=== PATIENT | male | born 1955 | race African-American/Black ===

== ENCOUNTER 2017-11-10 09:22 | Inpatient (IN) | payer OTHER ==
[2017-11-10 12:14] VITALS: BMI 30.9
--- NOTE | 2017-11-10 13:19 | HP ---
COWS - Scale Resting Pulse: 0= [place] 80 or Below Sweatin= Chills/Flushing Restless Observation: 1= Difficult to Sit Still Pupil Size: 0= Normal to Room Light Bone or Joint Aches: 2= Severe Diffuse Aches Runny Nose/ Eye Tearin= Runny Nose/Eyes GI Upset > 30mins: 3= Vomiting/Diarrhea Tremor Observation: 2= Slight Tremor Visible Yawning Observation: 1= 1-2x During Session Anxiety or Irritability: 2=Irritable/Anxious Goose Flesh Skin: 0=Smooth Skin COWS Score: 14 Admission [facility] Chief Complaint: "I needed help" Allergies/Adverse Reactions: Allergies Allergy/AdvReac Type Severity Reaction Status Date / Time No Known Allergies Allergy Verified 11/10/17 12:07 History of Present Illness: 62 y/o male with a 2 year history of opiate addiction presents requesting detox. Pt states prior to that he used cocaine about 10 yrs ago which he stopped about 5 - 6 yrs ago. He smoked marijuana in between stopping with occasional alcohol but started opiates 2 yrs ago and has been using everyday since then, has never gone more than 4 hrs without using. 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 Has also PAD b/l legs, with debridement done x 2 yrs ago to R leg per pt. Pt appears dishevelled, has scabbed wounds to head, elbows and circulatory ulcers to legs. Denies any other medical nor psychaitrixc hx, denies any home meds, states he is homeless. Last time pt saw a doctor was 2 yrs ago. Denies past nor current SI/HI Exam Limitations: Physical Impairment - Ebola screening Have you traveled outside of the country in the last 21 days: No Have you had contact with anyone from an Ebola affected area: No Have you been sick,other than usual withdrawal symptoms: No Do you have a fever: No - Review of Systems Constitutional: Loss of Appetite, Changes in sleep EENT: reports: Nose Congestion, Dental Problems (has no teeth), Other (blind in both eyes) Respiratory: reports: Shortness of Breath (sometimes) Cardiac: reports: No Symptoms Reported GI: reports: Diarrhea, Abdominal cramping : reports: Burning, Dysuria Musculoskeletal: reports: Back Pain, Joint Pain, Joint Stiffness Integumentary: reports: Dryness Neuro: reports: Unsteady Gait, Other (ambulates with a walker,) Endocrine: reports: No Symptoms Reported Hematology: reports: No Symptoms Reported Psychiatric: reports: Agitated, Anxious Other Systems: Reviewed and Negative Patient History - Patient Medical History Hx Anemia: No Hx Asthma: No Hx Chronic Obstructive Pulmonary Disease (COPD): No Hx Cancer: No Hx Cardiac Disorders: No Hx Congestive Heart Failure: No Hx Hypertension: No Hx Hypercholesterolemia: No Hx Pacemaker: No HX Cerebrovascular Accident: No Hx Seizures: No Hx Dementia: No Hx Diabetes: No Hx Gastrointestinal Disorders: No Hx Liver Disease: No Hx Genitourinary Disorders: No Hx Sexually Transmitted Disorders: No Hx Renal Disease (ESRD): No Hx Thyroid Disease: No Hx Human Immunodeficiency Virus (HIV): No (Last tested 2 yrs ago, negative) Hx Hepatitis C: No Hx Depression: Yes (not on meds) Hx Suicide Attempt: No (denies current SI) Hx Bipolar Disorder: No Hx Schizophrenia: No - Patient Surgical History Past Surgical History: Yes Hx Neurologic Surgery: No Hx Cataract Extraction: No Hx Cardiac Surgery: No Hx Lung Surgery: No Hx Breast Surgery: No Hx Breast Biopsy: No Hx Abdominal Surgery: No Hx Appendectomy: No Hx Cholecystectomy: No Hx Genitourinary Surgery: No Hx Section: No Hx Orthopedic Surgery: No Other Surgical History: had surgical debridement to R leg 2 yrs ago, has dressing to the L knee Anesthesia Reaction: No - PPD History Previous Implant?: No Documented Results: Negative w/o proof Implanted On Prior R Admission?: No PPD to be Administered?: Yes - Reproductive History Patient is a Female of Child Bearing Age (11 -55 yrs old): No - Smoking Cessation Smoking history: Current every day smoker Have you smoked in the past 12 months: Yes Aproximately how many cigarettes per day: 5 Hx Chewing Tobacco Use: No Initiated information on smoking cessation: Yes 'Breaking Loose' booklet given: 11/10/17 - Substance & Tx. History Hx Alcohol Use: No Hx Substance Use: Yes Substance Use Type: Heroin, Opiates Hx Substance Use Treatment: No - Substances Abused Heroin Route: Inhalation Frequency: Daily Amount used: 4-5 BAGS Age of first use: 60 Date of Last Use: 11/09/17 Oxycontin Route: Oral Frequency: Daily Amount used: 30mg Age of first use: 61 Date of Last Use: 11/10/17 Family Disease History - Family Disease History Family Disease History: Other: Father (), Mother () Admission Physical Exam [facility] - Vital Signs Vital Signs: Vital Signs - 24 hr 11/10/17 12:12 Temperature 97.5 F L Pulse Rate 79 Respiratory 18 Rate Blood Pressure 154/92 - Physical General Appearance: Yes: Disheveled, Moderate Distress, Irritable, Anxious HEENTM: Yes: Other (pt is blind, has scabbed wounds to the head) Respiratory: Yes: Normal Breath Sounds, No Respiratory Distress Neck: Yes: Within Normal Limits, Trachea in good position Breast: Yes: Breast Exam Deferred Cardiology: Yes: Within Normal Limits, Regular Rate Abdominal: Yes: Non Tender Genitourinary: Yes: Within Normal Limits, Hesitency Back: Yes: Normal Inspection Musculoskeletal: Yes: Other (walks slowly with a cane) Extremities: Yes: Normal Capillary Refill, Other (multiple scantily bleeding circulatory ulcers to both legs, elbows) Neurological: Yes: Fully Oriented Integumentary: Yes: Normal Color Lymphatic: Yes: Within Normal Limits, Other (has impaired circulation to extremities) - Diagnostic (1) Opioid dependence with withdrawal Current Visit: Yes Status: Acute (2) Nicotine dependence Current Visit: Yes Status: Acute (3) Blindness of both eyes Current Visit: Yes Status: Acute (4) Ulcers of both lower extremities Current Visit: Yes Status: Acute (5) Healing ulcers of both lower extremities Current Visit: Yes Status: Acute Cleared for Admission [facility] - Detox or Rehab [facility] Level of Care: Medically Managed Detox Regimen/Protocol: Methadone [facility] Breath Alcohol Content Breath Alcohol Content: 0 Urine Drug Screen - Results Drug Screen Negative: No Urine Drug Screen Results: OPI-Opiates, OXY-Oxycodone, FEN-Fentanyl
[2017-11-10] MEDS ORDERED: MAGNESIUM CITRATE 300 ML BOTTLE PO PRN (14:26)
[2017-11-10] MEDS ORDERED: MENTHOL/PHENOL 1 EACH UD MM PRN (14:26)
[2017-11-10] MEDS ORDERED: guaiFENesin/D-METHORPHAN HB 10 ML UNIT-DOSE CUPS PO PRN (14:26)
[2017-11-10] MEDS ORDERED: MAGNESIUM HYDROX 2400MG/30ML ORAL SUSPENSION 30 ML CUP PO PRN (14:26)
[2017-11-10] MEDS ORDERED: LOPERAMIDE HCL 2 MG CAPSULE PO PRN (14:26)
[2017-11-10] MEDS ORDERED: NICOTINE POLACRILEX 2 MG GUM BUC PRN (14:26)
[2017-11-10] MEDS ORDERED: METHADONE HCL 10 MG TABLET (FOR DETOX USE ONLY) PO ONE ×2 (14:26→23:00)
[2017-11-10] MEDS ORDERED: MAG HYDROX/AL HYDROX/SIMETH 30 ML UNIT-DOSE CUP PO PRN (14:26)
[2017-11-10] MEDS ORDERED: P-EPHED 60MG/TRIPROLIDI 2.5MG TABLET PO PRN (14:26)
--- NOTE | 2017-11-10 14:39 | PN ---
[facility] Progress Note Note: keflex ordered for pt's multiple wounds ulcers
[2017-11-10] MEDS: NICOTINE 7 MG/24 HOURS TOPICAL PATCH TD SCH (14:50)
[2017-11-10 17:50] LABS: URINE APPEARANCE TURBID; URINE BILIRUBIN NEGATIVE (<2.0 mg/dL); URINE COLOR AMBER; URINE GLUCOSE (UA) NEGATIVE (NEGATIVE); URINE KETONE NEGATIVE (NEGATIVE); URINE NITRITE NEGATIVE (NEGATIVE)
[2017-11-10 17:52] LABS: URINE LEUK ESTERASE 2+ (NEGATIVE); URINE PROTEIN 1+ (NEGATIVE)
[2017-11-10 17:54] LABS: CALCIUM OXALATE CRYSTALS MODERATE /hpf (NONE SEEN); URINE MUCUS RARE
[2017-11-10] MEDS: IBUPROFEN 400 MG TABLET (FP) PO PRN (18:35)
[2017-11-10] MEDS: THIAMINE HCL 100 MG TABLET (FP) PO SCH (22:13)
[2017-11-10] MEDS: BACITRACIN 0.9 GM PACKET TP SCH (22:14)
[2017-11-10] MEDS: CEPHALEXIN MONOHYDRATE 250 MG CAPSULE (FP) PO SCH (22:16)
[2017-11-10] MEDS: MELATONIN 5 MG TABLETS PO PRN (22:19)
[2017-11-11] MEDS: CEPHALEXIN MONOHYDRATE 250 MG CAPSULE (FP) PO SCH ×5 (00:50→23:26)
[2017-11-11] MEDS: IBUPROFEN 400 MG TABLET (FP) PO PRN ×3 (02:08→19:21)
[2017-11-11] MEDS: diazePAM 5 MG TABLET PO PRN ×2 (02:08→19:20)
[2017-11-11] MEDS ORDERED: METHADONE HCL 10 MG TABLET (FOR DETOX USE ONLY) PO ONE (10:00)
[2017-11-11 10:12] LABS: HEMATOCRIT 36.1 % (35.4-49); HEMOGLOBIN 11.8 GM/dL (11.7-16.9); MCH 28.8 pg (25.7-33.7); MCHC 32.6 g/dl (32.0-35.9); MEAN CELL VOLUME 88.2 fl (80-96); MEAN PLT VOLUME 7.5 fl (7.5-11.1); PLATELET COUNT 404 K/MM3 (134-434); RDW 14.1 % (11.9-15.9); WHITE BLOOD COUNT 7.6 K/mm3 (4.0-10.0)
[2017-11-11 10:25] LABS: ALBUMIN 3.1 g/dl (3.4-5.0); ANION GAP 10 MMOL/L (8-16); BLOOD UREA NITROGEN 16 mg/dL (7-18); CHLORIDE 106 mmol/L (98-107); CO2 25 mmol/L (21-32); GLUCOSE,RANDOM 88 mg/dL (74-106); POTASSIUM 4.2 mmol/L (3.5-5.1); SODIUM 141 mmol/L (136-145)
[2017-11-11 10:30] LABS: ALK PHOS 79 U/L (45-117); BILIRUBIN,TOTAL 0.5 mg/dL (0.2-1.0); CREATININE 0.7 mg/dL (0.7-1.3); SGOT/AST 38 U/L (15-37); SGPT/ALT 22 U/L (12-78); TOT PROT 8.2 g/dl (6.4-8.2)
[2017-11-11] MEDS: PRENATAL VITAMINS W/ FOLIC ACID TABLET (FP) PO SCH (10:35)
[2017-11-11] MEDS: BACITRACIN 0.9 GM PACKET TP SCH ×2 (10:35→22:39)
[2017-11-11] MEDS: NICOTINE 7 MG/24 HOURS TOPICAL PATCH TD SCH (10:36)
--- NOTE | 2017-11-11 11:23 | EKG ---
Test Reason : Blood Pressure : / mmHG Vent. Rate : 072 BPM Atrial Rate : 072 BPM P-R Int : 162 ms QRS Dur : 078 ms QT Int : 392 ms P-R-T Axes : 082 000 064 degrees QTc Int : 429 ms NORMAL SINUS RHYTHM NORMAL ECG NO PREVIOUS ECGS AVAILABLE Confirmed by DORIAN JACOBSON MD ([id number]) on 11/11/2017 11:23:02 AM Referred By: Yaquelin Hancock Confirmed By:DORIAN JACOBSON MD
[2017-11-11] MEDS: LIDOCAINE 5% TOPICAL PATCH TP SCH (14:34)
--- NOTE | 2017-11-11 15:08 | PN ---
S COWS - Scale Resting Pulse: 0= [place] 80 or Below Sweatin= Chills/Flushing Restless Observation: 1= Difficult to Sit Still Pupil Size: 1= Pupils >than Normal Bone or Joint Aches: 2= Severe Diffuse Aches Runny Nose/ Eye Tearin= Nasal Congestion GI Upset > 30mins: 2= Nausea/Diarrhea Tremor Observation of Outstretched Hands: 2= Slight Tremor Visible Yawning Observation: 1= 1-2x During Session Anxiety or Irritability: 2=Irritable/Anxious Goose Flesh Skin: 0=Smooth Skin COWS Score: 13 [facility] Progress Note (SOAP) Subjective: body aches joints pain muscle cramping low energy left lower extremity chronic necrotic tissues and peeling off scars tissues Objective: 11/11/17 15:34 Vital Signs Temperature 98.4 F 11/11/17 13:25 Pulse Rate 81 11/11/17 13:25 Respiratory Rate 16 11/11/17 13:25 Blood Pressure 134/78 11/11/17 13:25 O2 Sat by Pulse Oximetry (%) Laboratory Last Values WBC 7.6 K/mm3 (4.0-10.0) 11/11/17 07:00 RBC 4.10 M/mm3 (4.00-5.60) 11/11/17 07:00 Hgb 11.8 GM/dL (11.7-16.9) 11/11/17 07:00 Hct 36.1 % (35.4-49) 11/11/17 07:00 MCV 88.2 fl (80-96) 11/11/17 07:00 MCH 28.8 pg (25.7-33.7) 11/11/17 07:00 MCHC 32.6 g/dl (32.0-35.9) 11/11/17 07:00 RDW 14.1 % (11.9-15.9) 11/11/17 07:00 Plt Count 404 K/MM3 (134-434) 11/11/17 07:00 MPV 7.5 fl (7.5-11.1) 11/11/17 07:00 Sodium 141 mmol/L (136-145) 11/11/17 07:00 Potassium 4.2 mmol/L (3.5-5.1) 11/11/17 07:00 Chloride 106 mmol/L (98-107) 11/11/17 07:00 Carbon Dioxide 25 mmol/L (21-32) 11/11/17 07:00 Anion Gap 10 MMOL/L (8-16) 11/11/17 07:00 BUN 16 mg/dL (7-18) 11/11/17 07:00 Creatinine 0.7 mg/dL (0.7-1.3) 11/11/17 07:00 Creat Clearance w eGFR > 60 (>60) 11/11/17 07:00 Random Glucose 88 mg/dL (74-106) 11/11/17 07:00 Calcium 9.0 mg/dL (8.5-10.1) 11/11/17 07:00 Total Bilirubin 0.5 mg/dL (0.2-1.0) 11/11/17 07:00 AST 38 U/L (15-37) H 11/11/17 07:00 ALT 22 U/L (12-78) 11/11/17 07:00 Alkaline Phosphatase 79 U/L (45-117) 11/11/17 07:00 Total Protein 8.2 g/dl (6.4-8.2) 11/11/17 07:00 Albumin 3.1 g/dl (3.4-5.0) L 11/11/17 07:00 Urine Color Nancy 11/10/17 15:10 Urine Appearance Turbid 11/10/17 15:10 Urine pH 5.0 (5.0-8.0) 11/10/17 15:10 Ur Specific [place] 1.026 (1.001-1.035) 11/10/17 15:10 Urine Protein 1+ (NEGATIVE) H 11/10/17 15:10 Urine Glucose (UA) Negative (NEGATIVE) 11/10/17 15:10 Urine Ketones Negative (NEGATIVE) 11/10/17 15:10 Urine Blood Negative (NEGATIVE) 11/10/17 15:10 Urine Nitrite Negative (NEGATIVE) 11/10/17 15:10 Urine Bilirubin Negative (<2.0 mg/dL) 11/10/17 15:10 Urine Urobilinogen 2.0 mg/dL (0.2-1.0) 11/10/17 15:10 Ur Leukocyte Esterase 2+ (NEGATIVE) H 11/10/17 15:10 Urine WBC (Auto) 66 /hpf (3-5) 11/10/17 15:10 Urine RBC (Auto) 2 /hpf (0-3) 11/10/17 15:10 Calcium Oxalate Crystal Moderate /hpf (NONE SEEN) 11/10/17 15:10 Urine Mucus Rare 11/10/17 15:10 RPR Titer Nonreactive (NONREACTIVE) 11/11/17 07:00 lab noted Assessment: 11/11/17 15:35 withdrawal sx 11/11/17 15:35 cellulitis Plan: continue detox keflex
--- NOTE | 2017-11-11 17:04 | CONSULT ---
[facility] Psychiatric Consult - Data Date of interview: 11/11/17 Admission source: [facility] Identifying data: First admission to [facility] for this 62 y/o AA male self- referred for detoxification treatment (opioid dependence).Admiited to [address] [place] [address].patient is singel without dependents,homeless,unemployed (disabled : blind ) and supported on [facility] benefits. Substance Abuse History: Confirmed by the patient in this interview.Details in current [facility] report : Smoking history: Current every day smoker. Have you smoked in the past 12 months: Yes. Aproximately how many cigarettes per day: 5. Hx Chewing Tobacco Use: No. Initiated information on smoking cessation: Yes. 'Breaking Loose' booklet given: 11/10/17. - Substance & Tx. History. Hx Alcohol Use: No. Hx Substance Use: Yes. Substance Use Type: Heroin, Opiates. Hx Substance Use Treatment: No. - Substances Abused. Heroin. Route: Inhalation. Frequency: Daily. Amount used: 4-5 BAGS. Age of first use: 60. Date of Last Use: 11/09/17. Oxycontin. Route: Oral. Frequency: Daily. Amount used: 30mg. Age of first use: 61. Date of Last Use: 11/10/17 Medical History: Edentulous.Patient is blind (detached retina in left eye + corneal degeneration in right eye).Walks with a cane. Psychiatric History: Patient denies. Physical/Sexual Abuse/Trauma History: Patient denies. Additional Comment: Urine Drug Screen Results: OPI-Opiates, OXY-Oxycodone, FEN- Fentanyl.Noted. Mental Status Exam - Mental Status Exam Alert and Oriented to: Time, Place, Person Cognitive Function: Grossly Intact Patient Appearance: Well Groomed Mood: Nervous, Withdrawn Affect: Mood Congruent Patient Behavior: Fatigued, Appropriate, Cooperative Speech Pattern: Clear, Appropriate Voice Loudness: Normal Thought Process: Goal Oriented Thought Disorder: Not Present Hallucinations: Denies Suicidal Ideation: Denies Homicidal Ideation: Denies Insight/Judgement: Poor Sleep: Well Appetite: Good Muscle strength/Tone: Normal Gait/Station: Other (not observed ; in bed during interview) Psychiatric Findings - Problem List ([place] 1, 2,3) (1) Opioid dependence with withdrawal Current Visit: Yes Status: Acute (2) Nicotine dependence Current Visit: Yes Status: Acute - Initial Treatment Plan Initial Treatment Plan: Psychoeducation.sleep hygiene.Detoxification.Observation.
[2017-11-11] MEDS ORDERED: CEPHALEXIN MONOHYDRATE 500 MG CAPSULE (UD) PO SCH (18:00)
[2017-11-11] MEDS: THIAMINE HCL 100 MG TABLET (FP) PO SCH (22:37)
[2017-11-11] MEDS: ACETAMINOPHEN 325 MG TABLET (FP) PO PRN (22:37)
[2017-11-11] MEDS: LIDOCAINE PATCH REMOVAL MC SCH (22:38)
[2017-11-11] MEDS: MELATONIN 5 MG TABLETS PO PRN (22:45)
[2017-11-12] MEDS: diazePAM 5 MG TABLET PO PRN ×4 (00:45→22:42)
[2017-11-12] MEDS: IBUPROFEN 400 MG TABLET (FP) PO PRN ×3 (01:19→22:49)
[2017-11-12] MEDS ORDERED: CYCLOBENZAPRINE HCL 5 MG TABLET PO ONE (01:46)
[2017-11-12] MEDS ORDERED: IBUPROFEN 400 MG TABLET (FP) PO ONE (01:46)
[2017-11-12] MEDS: CEPHALEXIN MONOHYDRATE 250 MG CAPSULE (FP) PO SCH ×4 (06:30→23:15)
[2017-11-12] MEDS ORDERED: METHADONE HCL 5 MG TABLET (FOR DETOX USE ONLY) PO ONE (10:00)
[2017-11-12] MEDS: PRENATAL VITAMINS W/ FOLIC ACID TABLET (FP) PO SCH (11:20)
[2017-11-12] MEDS: BACITRACIN 0.9 GM PACKET TP SCH ×2 (11:21→22:42)
[2017-11-12] MEDS: NICOTINE 7 MG/24 HOURS TOPICAL PATCH TD SCH (11:23)
[2017-11-12] MEDS: LIDOCAINE 5% TOPICAL PATCH TP SCH (11:23)
--- NOTE | 2017-11-12 16:14 | PN ---
[facility] COWS - Scale Resting Pulse: 0= [place] 80 or Below Sweatin= Chills/Flushing Restless Observation: 0= Sits Still Pupil Size: 1= Pupils >than Normal Bone or Joint Aches: 2= Severe Diffuse Aches Runny Nose/ Eye Tearin= Nasal Congestion GI Upset > 30mins: 1= Stomach Cramp Tremor Observation of Outstretched Hands: 1= Tremor [place], Not Seen Yawning Observation: 1= 1-2x During Session Anxiety or Irritability: 2=Irritable/Anxious Goose Flesh Skin: 0=Smooth Skin COWS Score: 10 [facility] Progress Note (SOAP) Subjective: body ache mild tremor reported sever back pain requests methadone twice a day wants to transfer to "someplace" treated back pain then return to bed her in [facility] teaching risks of opiate based medication Objective: 11/12/17 16:21 Vital Signs Temperature 97.3 F L 11/12/17 09:20 Pulse Rate 69 11/12/17 09:20 Respiratory Rate 18 11/12/17 09:20 Blood Pressure 153/73 11/12/17 09:20 O2 Sat by Pulse Oximetry (%) Laboratory Last Values WBC 7.6 K/mm3 (4.0-10.0) 11/11/17 07:00 RBC 4.10 M/mm3 (4.00-5.60) 11/11/17 07:00 Hgb 11.8 GM/dL (11.7-16.9) 11/11/17 07:00 Hct 36.1 % (35.4-49) 11/11/17 07:00 MCV 88.2 fl (80-96) 11/11/17 07:00 MCH 28.8 pg (25.7-33.7) 11/11/17 07:00 MCHC 32.6 g/dl (32.0-35.9) 11/11/17 07:00 RDW 14.1 % (11.9-15.9) 11/11/17 07:00 Plt Count 404 K/MM3 (134-434) 11/11/17 07:00 MPV 7.5 fl (7.5-11.1) 11/11/17 07:00 Sodium 141 mmol/L (136-145) 11/11/17 07:00 Potassium 4.2 mmol/L (3.5-5.1) 11/11/17 07:00 Chloride 106 mmol/L (98-107) 11/11/17 07:00 Carbon Dioxide 25 mmol/L (21-32) 11/11/17 07:00 Anion Gap 10 MMOL/L (8-16) 11/11/17 07:00 BUN 16 mg/dL (7-18) 11/11/17 07:00 Creatinine 0.7 mg/dL (0.7-1.3) 11/11/17 07:00 Creat Clearance w eGFR > 60 (>60) 11/11/17 07:00 Random Glucose 88 mg/dL (74-106) 11/11/17 07:00 Calcium 9.0 mg/dL (8.5-10.1) 11/11/17 07:00 Total Bilirubin 0.5 mg/dL (0.2-1.0) 11/11/17 07:00 AST 38 U/L (15-37) H 11/11/17 07:00 ALT 22 U/L (12-78) 11/11/17 07:00 Alkaline Phosphatase 79 U/L (45-117) 11/11/17 07:00 Total Protein 8.2 g/dl (6.4-8.2) 11/11/17 07:00 Albumin 3.1 g/dl (3.4-5.0) L 11/11/17 07:00 Urine Color Nancy 11/10/17 15:10 Urine Appearance Turbid 11/10/17 15:10 Urine pH 5.0 (5.0-8.0) 11/10/17 15:10 Ur Specific [place] 1.026 (1.001-1.035) 11/10/17 15:10 Urine Protein 1+ (NEGATIVE) H 11/10/17 15:10 Urine Glucose (UA) Negative (NEGATIVE) 11/10/17 15:10 Urine Ketones Negative (NEGATIVE) 11/10/17 15:10 Urine Blood Negative (NEGATIVE) 11/10/17 15:10 Urine Nitrite Negative (NEGATIVE) 11/10/17 15:10 Urine Bilirubin Negative (<2.0 mg/dL) 11/10/17 15:10 Urine Urobilinogen 2.0 mg/dL (0.2-1.0) 11/10/17 15:10 Ur Leukocyte Esterase 2+ (NEGATIVE) H 11/10/17 15:10 Urine WBC (Auto) 66 /hpf (3-5) 11/10/17 15:10 Urine RBC (Auto) 2 /hpf (0-3) 11/10/17 15:10 Calcium Oxalate Crystal Moderate /hpf (NONE SEEN) 11/10/17 15:10 Urine Mucus Rare 11/10/17 15:10 RPR Titer Nonreactive (NONREACTIVE) 11/11/17 07:00 lab noted Assessment: 11/12/17 16:22 withdrawal sx chronic back pain Plan: continue detox
[2017-11-12] MEDS: BACLOFEN 10 MG TABLET (FP) PO PRN (17:55)
[2017-11-12] MEDS: LIDOCAINE PATCH REMOVAL MC SCH (22:42)
[2017-11-12] MEDS: THIAMINE HCL 100 MG TABLET (FP) PO SCH (22:42)
[2017-11-12] MEDS: MELATONIN 5 MG TABLETS PO PRN (22:50)
[2017-11-13] MEDS: diazePAM 5 MG TABLET PO PRN ×3 (03:14→12:02)
[2017-11-13] MEDS: BACLOFEN 10 MG TABLET (FP) PO PRN ×3 (03:19→23:37)
[2017-11-13] MEDS: CEPHALEXIN MONOHYDRATE 250 MG CAPSULE (FP) PO SCH ×4 (06:33→23:37)
[2017-11-13] MEDS: IBUPROFEN 400 MG TABLET (FP) PO PRN ×2 (07:11→15:42)
[2017-11-13] MEDS ORDERED: METHADONE HCL 5 MG TABLET (FOR DETOX USE ONLY) PO ONE (10:00)
[2017-11-13] MEDS: PRENATAL VITAMINS W/ FOLIC ACID TABLET (FP) PO SCH (10:49)
[2017-11-13] MEDS: BACITRACIN 0.9 GM PACKET TP SCH ×2 (10:49→23:38)
[2017-11-13] MEDS: NICOTINE 7 MG/24 HOURS TOPICAL PATCH TD SCH (10:49)
[2017-11-13] MEDS: LIDOCAINE 5% TOPICAL PATCH TP SCH (10:50)
--- NOTE | 2017-11-13 11:27 | PN ---
[facility] Progress Note (SOAP) Subjective: interrupted sleep, sweats , lbp Objective: 11/13/17 11:24 Vital Signs Temperature 98.6 F 11/13/17 09:35 Pulse Rate 114 H 11/13/17 09:35 Respiratory Rate 18 11/13/17 09:35 Blood Pressure 117/75 11/13/17 09:35 O2 Sat by Pulse Oximetry (%) Laboratory Tests 11/10/17 11/11/17 11/11/17 15:10 07:00 07:00 WBC 7.6 RBC 4.10 Hgb 11.8 Hct 36.1 MCV 88.2 MCH 28.8 MCHC 32.6 RDW 14.1 Plt Count 404 MPV 7.5 Sodium 141 Potassium 4.2 Chloride 106 Carbon Dioxide 25 Anion Gap 10 BUN 16 Creatinine 0.7 Creat Clearance w eGFR > 60 Random Glucose 88 Calcium 9.0 Total Bilirubin 0.5 AST 38 H ALT 22 Alkaline Phosphatase 79 Total Protein 8.2 Albumin 3.1 L Urine Color Nancy Urine Appearance Turbid Urine pH 5.0 Ur Specific [place] 1.026 Urine Protein 1+ H Urine Glucose (UA) Negative Urine Ketones Negative Urine Blood Negative Urine Nitrite Negative Urine Bilirubin Negative Urine Urobilinogen 2.0 Ur Leukocyte Esterase 2+ H Urine WBC (Auto) 66 Urine RBC (Auto) 2 Calcium Oxalate Crystal Moderate Urine Mucus Rare RPR Titer 11/11/17 07:00 WBC RBC Hgb Hct MCV MCH MCHC RDW Plt Count MPV Sodium Potassium Chloride Carbon Dioxide Anion Gap BUN Creatinine Creat Clearance w eGFR Random Glucose Calcium Total Bilirubin AST ALT Alkaline Phosphatase Total Protein Albumin Urine Color Urine Appearance Urine pH Ur Specific [place] Urine Protein Urine Glucose (UA) Urine Ketones Urine Blood Urine Nitrite Urine Bilirubin Urine Urobilinogen Ur Leukocyte Esterase Urine WBC (Auto) Urine RBC (Auto) Calcium Oxalate Crystal Urine Mucus RPR Titer Nonreactive blind male pt aox3 sitting in bed in nad legs ulcers rt . left , cling on rt 11/13/17 11:25 Assessment: 11/13/17 11:26 withdrawal sx's blind leg ulcers Plan: continue detox increase fluids wheelchair daily wound care lidocaine patch daily
[2017-11-13] MEDS: ACETAMINOPHEN 325 MG TABLET (FP) PO PRN (18:11)
[2017-11-13] MEDS: hydrOXYzine PAMOATE 50 MG CAPSULE (FP) PO PRN (18:11)
[2017-11-13] MEDS: LIDOCAINE PATCH REMOVAL MC SCH (23:25)
[2017-11-13] MEDS: THIAMINE HCL 100 MG TABLET (FP) PO SCH (23:42)
[2017-11-14] MEDS: IBUPROFEN 400 MG TABLET (FP) PO PRN ×4 (00:11→22:48)
[2017-11-14] MEDS: hydrOXYzine PAMOATE 50 MG CAPSULE (FP) PO PRN ×5 (00:20→22:48)
[2017-11-14] MEDS: BACLOFEN 10 MG TABLET (FP) PO PRN ×3 (06:26→22:48)
[2017-11-14] MEDS: CEPHALEXIN MONOHYDRATE 250 MG CAPSULE (FP) PO SCH ×4 (06:26→23:09)
[2017-11-14] MEDS ORDERED: METHADONE HCL 10 MG TABLET (FOR DETOX USE ONLY) PO ONE (10:00)
--- NOTE | 2017-11-14 10:15 | PN ---
[facility] Progress Note (SOAP) Subjective: feeling better no sweat no tremor chronic back pain treated with motrin and muscle relaxant with good effect reported can not stop picking on the scabs on the legs encourage hand washing Objective: 11/14/17 10:14 Vital Signs Temperature 98.1 F 11/14/17 08:59 Pulse Rate 77 11/14/17 08:59 Respiratory Rate 18 11/14/17 08:59 Blood Pressure 123/76 11/14/17 08:59 O2 Sat by Pulse Oximetry (%) Laboratory Last Values WBC 7.6 K/mm3 (4.0-10.0) 11/11/17 07:00 RBC 4.10 M/mm3 (4.00-5.60) 11/11/17 07:00 Hgb 11.8 GM/dL (11.7-16.9) 11/11/17 07:00 Hct 36.1 % (35.4-49) 11/11/17 07:00 MCV 88.2 fl (80-96) 11/11/17 07:00 MCH 28.8 pg (25.7-33.7) 11/11/17 07:00 MCHC 32.6 g/dl (32.0-35.9) 11/11/17 07:00 RDW 14.1 % (11.9-15.9) 11/11/17 07:00 Plt Count 404 K/MM3 (134-434) 11/11/17 07:00 MPV 7.5 fl (7.5-11.1) 11/11/17 07:00 Sodium 141 mmol/L (136-145) 11/11/17 07:00 Potassium 4.2 mmol/L (3.5-5.1) 11/11/17 07:00 Chloride 106 mmol/L (98-107) 11/11/17 07:00 Carbon Dioxide 25 mmol/L (21-32) 11/11/17 07:00 Anion Gap 10 MMOL/L (8-16) 11/11/17 07:00 BUN 16 mg/dL (7-18) 11/11/17 07:00 Creatinine 0.7 mg/dL (0.7-1.3) 11/11/17 07:00 Creat Clearance w eGFR > 60 (>60) 11/11/17 07:00 Random Glucose 88 mg/dL (74-106) 11/11/17 07:00 Calcium 9.0 mg/dL (8.5-10.1) 11/11/17 07:00 Total Bilirubin 0.5 mg/dL (0.2-1.0) 11/11/17 07:00 AST 38 U/L (15-37) H 11/11/17 07:00 ALT 22 U/L (12-78) 11/11/17 07:00 Alkaline Phosphatase 79 U/L (45-117) 11/11/17 07:00 Total Protein 8.2 g/dl (6.4-8.2) 11/11/17 07:00 Albumin 3.1 g/dl (3.4-5.0) L 11/11/17 07:00 Urine Color Nancy 11/10/17 15:10 Urine Appearance Turbid 11/10/17 15:10 Urine pH 5.0 (5.0-8.0) 11/10/17 15:10 Ur Specific [place] 1.026 (1.001-1.035) 11/10/17 15:10 Urine Protein 1+ (NEGATIVE) H 11/10/17 15:10 Urine Glucose (UA) Negative (NEGATIVE) 11/10/17 15:10 Urine Ketones Negative (NEGATIVE) 11/10/17 15:10 Urine Blood Negative (NEGATIVE) 11/10/17 15:10 Urine Nitrite Negative (NEGATIVE) 11/10/17 15:10 Urine Bilirubin Negative (<2.0 mg/dL) 11/10/17 15:10 Urine Urobilinogen 2.0 mg/dL (0.2-1.0) 11/10/17 15:10 Ur Leukocyte Esterase 2+ (NEGATIVE) H 11/10/17 15:10 Urine WBC (Auto) 66 /hpf (3-5) 11/10/17 15:10 Urine RBC (Auto) 2 /hpf (0-3) 11/10/17 15:10 Calcium Oxalate Crystal Moderate /hpf (NONE SEEN) 11/10/17 15:10 Urine Mucus Rare 11/10/17 15:10 RPR Titer Nonreactive (NONREACTIVE) 11/11/17 07:00 lab noted Assessment: 11/14/17 10:15 mild withdrawal sx continue leg dressing change strong recommend avoid irritation to the legs Plan: medically supervised detox
[2017-11-14] MEDS: LIDOCAINE 5% TOPICAL PATCH TP SCH (10:58)
[2017-11-14] MEDS: BACITRACIN 0.9 GM PACKET TP SCH ×2 (10:58→22:57)
[2017-11-14] MEDS: PRENATAL VITAMINS W/ FOLIC ACID TABLET (FP) PO SCH (10:58)
[2017-11-14] MEDS: NICOTINE 7 MG/24 HOURS TOPICAL PATCH TD SCH (10:58)
[2017-11-14] MEDS: THIAMINE HCL 100 MG TABLET (FP) PO SCH (22:48)
[2017-11-14] MEDS: LIDOCAINE PATCH REMOVAL MC SCH (22:49)
[2017-11-14] MEDS: MELATONIN 5 MG TABLETS PO PRN (22:54)
[2017-11-15] MEDS ORDERED: METHADONE HCL 5 MG TABLET (FOR DETOX USE ONLY) PO ONE (06:00)
[2017-11-15] MEDS: CEPHALEXIN MONOHYDRATE 250 MG CAPSULE (FP) PO SCH ×3 (06:47→18:00)
[2017-11-15] MEDS: IBUPROFEN 400 MG TABLET (FP) PO PRN ×3 (06:48→22:18)
[2017-11-15] MEDS: BACLOFEN 10 MG TABLET (FP) PO PRN ×3 (06:52→22:18)
--- NOTE | 2017-11-15 08:54 | PN ---
[facility] Progress Note (SOAP) Subjective: Im better but need my medicine. Objective: 11/15/17 08:51 Vital Signs Temperature 96.9 F L 11/15/17 06:10 Pulse Rate 67 11/15/17 06:10 Respiratory Rate 18 11/15/17 06:10 Blood Pressure 132/74 11/15/17 06:10 O2 Sat by Pulse Oximetry (%) Laboratory Tests 11/10/17 11/11/17 11/11/17 15:10 07:00 07:00 WBC 7.6 RBC 4.10 Hgb 11.8 Hct 36.1 MCV 88.2 MCH 28.8 MCHC 32.6 RDW 14.1 Plt Count 404 MPV 7.5 Sodium 141 Potassium 4.2 Chloride 106 Carbon Dioxide 25 Anion Gap 10 BUN 16 Creatinine 0.7 Creat Clearance w eGFR > 60 Random Glucose 88 Calcium 9.0 Total Bilirubin 0.5 AST 38 H ALT 22 Alkaline Phosphatase 79 Total Protein 8.2 Albumin 3.1 L Urine Color Nancy Urine Appearance Turbid Urine pH 5.0 Ur Specific [place] 1.026 Urine Protein 1+ H Urine Glucose (UA) Negative Urine Ketones Negative Urine Blood Negative Urine Nitrite Negative Urine Bilirubin Negative Urine Urobilinogen 2.0 Ur Leukocyte Esterase 2+ H Urine WBC (Auto) 66 Urine RBC (Auto) 2 Calcium Oxalate Crystal Moderate Urine Mucus Rare RPR Titer 11/11/17 07:00 WBC RBC Hgb Hct MCV MCH MCHC RDW Plt Count MPV Sodium Potassium Chloride Carbon Dioxide Anion Gap BUN Creatinine Creat Clearance w eGFR Random Glucose Calcium Total Bilirubin AST ALT Alkaline Phosphatase Total Protein Albumin Urine Color Urine Appearance Urine pH Ur Specific Clear Urine Protein Urine Glucose (UA) Urine Ketones Urine Blood Urine Nitrite Urine Bilirubin Urine Urobilinogen Ur Leukocyte Esterase Urine WBC (Auto) Urine RBC (Auto) Calcium Oxalate Crystal Urine Mucus RPR Titer Nonreactive pt aox3 in nad , lying in bed Assessment: 11/15/17 08:52 detox completed leg ulcers blind Plan: d/c today rehab at [facility] daily wound care keflex 500mg q 6h
--- NOTE | 2017-11-15 08:55 | DS ---
[facility] Detox Discharge Summary Admission Date: 11/10/17 Discharge Date: 11/15/17 - History Present History: Opioid Dependence - Physical Exam Results Vital Signs: Vital Signs Temperature 96.9 F L 11/15/17 06:10 Pulse Rate 67 11/15/17 06:10 Respiratory Rate 11/15/17 06:10 Blood Pressure 132/74 11/15/17 06:10 O2 Sat by Pulse Oximetry (%) - Medication Discharge Medications: Ambulatory Orders Cephalexin Monohydrate [Keflex -] 250 mg PO Q6HPO #20 capsule 11/15/17 - Diagnosis (1) Blindness of both eyes Current Visit: Yes Status: Chronic (2) Nicotine dependence Current Visit: Yes Status: Chronic (3) Opioid dependence with withdrawal Current Visit: Yes Status: Chronic (4) Ulcers of both lower extremities Current Visit: Yes Status: Chronic
--- NOTE | 2017-11-15 08:59 | DS ---
[facility] Detox Discharge Summary Admission Date: 11/10/17 Discharge Date: 11/15/17 - History Present History: Opioid Dependence - Physical Exam Results Vital Signs: Vital Signs Temperature 96.9 F L 11/15/17 06:10 Pulse Rate 67 11/15/17 06:10 Respiratory Rate 11/15/17 06:10 Blood Pressure 132/74 11/15/17 06:10 O2 Sat by Pulse Oximetry (%) - Treatment Hospital Course: Detox Protocol Followed, Detoxed Safely, Responded well, Discharged Condition Good - Medication Discharge Medications: Ambulatory Orders Cephalexin Monohydrate [Keflex -] 250 mg PO Q6HPO #20 capsule 11/15/17 - Diagnosis (1) Blindness of both eyes Current Visit: Yes Status: Chronic (2) Nicotine dependence Current Visit: Yes Status: Chronic Qualifiers: Nicotine product type: cigarettes Substance use status: uncomplicated Qualified Code(s): F17.210 - Nicotine dependence, cigarettes, uncomplicated (3) Opioid dependence with withdrawal Current Visit: Yes Status: Chronic (4) Ulcers of both lower extremities Current Visit: Yes Status: Chronic - AMA Did Patient Leave Against Medical Advice: No
[2017-11-15] MEDS: PRENATAL VITAMINS W/ FOLIC ACID TABLET (FP) PO SCH (10:43)
[2017-11-15] MEDS: NICOTINE 7 MG/24 HOURS TOPICAL PATCH TD SCH (10:43)
[2017-11-15] MEDS: hydrOXYzine PAMOATE 50 MG CAPSULE (FP) PO PRN (10:43)
[2017-11-15] MEDS: LIDOCAINE 5% TOPICAL PATCH TP SCH (10:44)
[2017-11-15] MEDS: BACITRACIN 0.9 GM PACKET TP SCH ×2 (13:13→22:18)
[2017-11-15] MEDS: THIAMINE HCL 100 MG TABLET (FP) PO SCH (22:18)
[2017-11-15] MEDS: MELATONIN 5 MG TABLETS PO PRN (22:18)
[2017-11-15] MEDS: LIDOCAINE PATCH REMOVAL MC SCH (22:18)
[2017-11-16] MEDS: CEPHALEXIN MONOHYDRATE 250 MG CAPSULE (FP) PO SCH ×5 (00:08→23:36)
[2017-11-16] MEDS: BACLOFEN 10 MG TABLET (FP) PO PRN ×2 (06:58→19:16)
[2017-11-16] MEDS: IBUPROFEN 400 MG TABLET (FP) PO PRN ×3 (06:59→22:52)
[2017-11-16] MEDS: PRENATAL VITAMINS W/ FOLIC ACID TABLET (FP) PO SCH (11:22)
[2017-11-16] MEDS: NICOTINE 7 MG/24 HOURS TOPICAL PATCH TD SCH (11:22)
[2017-11-16] MEDS: BACITRACIN 0.9 GM PACKET TP SCH ×2 (11:22→22:53)
[2017-11-16] MEDS: LIDOCAINE 5% TOPICAL PATCH TP SCH (11:22)
[2017-11-16] MEDS: ACETAMINOPHEN 325 MG TABLET (FP) PO PRN (11:33)
[2017-11-16] MEDS: hydrOXYzine PAMOATE 50 MG CAPSULE (FP) PO PRN (11:34)
[2017-11-16] MEDS: MELATONIN 5 MG TABLETS PO PRN (22:52)
[2017-11-16] MEDS: THIAMINE HCL 100 MG TABLET (FP) PO SCH (22:52)
[2017-11-16] MEDS: LIDOCAINE PATCH REMOVAL MC SCH (22:53)
[2017-11-17] MEDS: IBUPROFEN 400 MG TABLET (FP) PO PRN ×3 (03:53→19:39)
[2017-11-17] MEDS: hydrOXYzine PAMOATE 50 MG CAPSULE (FP) PO PRN ×2 (03:53→10:57)
[2017-11-17] MEDS: CEPHALEXIN MONOHYDRATE 250 MG CAPSULE (FP) PO SCH ×2 (06:00→13:00)
[2017-11-17] MEDS: BACLOFEN 10 MG TABLET (FP) PO PRN ×2 (07:22→15:18)
[2017-11-17] MEDS: ACETAMINOPHEN 325 MG TABLET (FP) PO PRN (07:23)
[2017-11-17] MEDS: BACITRACIN 0.9 GM PACKET TP SCH ×2 (10:53→22:39)
[2017-11-17] MEDS: NICOTINE 7 MG/24 HOURS TOPICAL PATCH TD SCH (10:53)
[2017-11-17] MEDS: LIDOCAINE 5% TOPICAL PATCH TP SCH (10:56)
[2017-11-17] MEDS: PRENATAL VITAMINS W/ FOLIC ACID TABLET (FP) PO SCH (10:56)
[2017-11-17] MEDS: LIDOCAINE PATCH REMOVAL MC SCH (22:11)
[2017-11-17] MEDS: THIAMINE HCL 100 MG TABLET (FP) PO SCH (22:39)
[2017-11-18] MEDS: IBUPROFEN 400 MG TABLET (FP) PO PRN ×4 (01:49→22:30)
[2017-11-18] MEDS: hydrOXYzine PAMOATE 50 MG CAPSULE (FP) PO PRN ×4 (01:53→22:28)
[2017-11-18] MEDS: BACLOFEN 10 MG TABLET (FP) PO PRN ×3 (01:54→22:29)
[2017-11-18 06:57] VITALS: TEMP 97.9
[2017-11-18] MEDS: BACITRACIN 0.9 GM PACKET TP SCH ×2 (11:16→22:28)
[2017-11-18] MEDS: PRENATAL VITAMINS W/ FOLIC ACID TABLET (FP) PO SCH (11:17)
[2017-11-18] MEDS: NICOTINE 7 MG/24 HOURS TOPICAL PATCH TD SCH (11:17)
[2017-11-18] MEDS: LIDOCAINE 5% TOPICAL PATCH TP SCH (11:19)
[2017-11-18] MEDS: ACETAMINOPHEN 325 MG TABLET (FP) PO PRN (11:22)
--- NOTE | 2017-11-18 16:43 | HP ---
Psychiatrist Admission - Data Date of interview: 11/18/17 Admission source: [address] [place] [address] detox Identifying data: This is the first admission to [address] [place] [address] inpatient rehablitation for this 62 years old AA single male undomiciled,supported by [facility]. Medical History: Blindness of both eyes(retinal detachment). Psychiatric History: denies Physical/Sexual Abuse/Trauma History: denies Vital Signs: Vital Signs - 24 hr 11/18/17 11/18/17 03:30 06:57 Temperature 97.9 F Pulse Rate 78 Respiratory 18 18 Rate Blood Pressure 138/81 Allergies/Adverse Reactions: Allergies Allergy/AdvReac Type Severity Reaction Status Date / Time No Known Allergies Allergy Verified 11/10/17 12:07 Date of last physical exam: 11/10/17 Concur with the findings of this exam: Yes - Substance Abuse/Tx History Hx Alcohol Use: Yes (socially) Hx Substance Use: Yes (stopped cocaine 9 yo,heroin since 60 yo,5 bags daily, Oxycontin since 61 yo) Substance Use Type: Alcohol, Cocaine, Opiates Hx Substance Use Treatment: Yes (no significant abstinence time) Mental Status Exam - Mental Status Exam Alert and Oriented to: Time, Place, Person Cognitive Function: Grossly Intact Patient Appearance: Unkempt Mood: Euthymic Affect: Constricted Patient Behavior: Passive Speech Pattern: Clear Voice Loudness: Mildly Soft/Quiet Thought Process: Goal Oriented Thought Disorder: Not Present Hallucinations: Denies Suicidal Ideation: Denies Homicidal Ideation: Denies Insight/Judgement: Fair Sleep: Fair Appetite: Fair Muscle strength/Tone: Normal Gait/Station: Other (carlos alberto needs some assistance since he is legally blind) Psychiatric Findings - Problem List ([place] 1, 2,3) (1) Blindness of both eyes Current Visit: Yes Status: Chronic (2) Nicotine dependence Current Visit: Yes Status: Chronic Qualifiers: Nicotine product type: cigarettes Substance use status: uncomplicated Qualified Code(s): F17.210 - Nicotine dependence, cigarettes, uncomplicated (3) Opioid dependence Current Visit: Yes Status: Chronic - Initial Treatment Plan Initial Treatment Plan: Will monitor progress.
[2017-11-18] MEDS: THIAMINE HCL 100 MG TABLET (FP) PO SCH (22:26)
[2017-11-18] MEDS: MELATONIN 5 MG TABLETS PO PRN (22:28)
[2017-11-18] MEDS: LIDOCAINE PATCH REMOVAL MC SCH (22:28)
[2017-11-19] MEDS: IBUPROFEN 400 MG TABLET (FP) PO PRN ×3 (03:39→19:07)
[2017-11-19] MEDS: hydrOXYzine PAMOATE 50 MG CAPSULE (FP) PO PRN ×4 (03:39→23:44)
[2017-11-19] MEDS: BACLOFEN 10 MG TABLET (FP) PO PRN ×3 (03:40→19:07)
[2017-11-19] MEDS: NICOTINE 7 MG/24 HOURS TOPICAL PATCH TD SCH (11:21)
[2017-11-19] MEDS: PRENATAL VITAMINS W/ FOLIC ACID TABLET (FP) PO SCH (11:21)
[2017-11-19] MEDS: BACITRACIN 0.9 GM PACKET TP SCH ×2 (11:21→23:42)
[2017-11-19] MEDS: LIDOCAINE 5% TOPICAL PATCH TP SCH (11:21)
[2017-11-19] MEDS ORDERED: TIZANIDINE HCL 2 MG TABLET PO PRN (13:39)
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
[2017-11-19] MEDS: CEPHALEXIN MONOHYDRATE 500 MG CAPSULE (UD) PO SCH (23:42)
[2017-11-19] MEDS: MELATONIN 5 MG TABLETS PO PRN (23:42)
[2017-11-19] MEDS: LIDOCAINE PATCH REMOVAL MC SCH (23:42)
[2017-11-19] MEDS: ACETAMINOPHEN 325 MG TABLET (FP) PO PRN (23:43)
[2017-11-19] MEDS: THIAMINE HCL 100 MG TABLET (FP) PO SCH (23:44)
[2017-11-19] MEDS: ZINC OXIDE 20% TOPICAL OINTMENT 30 GM TUBE TP SCH (23:44)
[2017-11-20] MEDS: IBUPROFEN 400 MG TABLET (FP) PO PRN ×2 (05:17→11:36)
[2017-11-20] MEDS: BACLOFEN 10 MG TABLET (FP) PO PRN (05:17)
[2017-11-20] MEDS: hydrOXYzine PAMOATE 50 MG CAPSULE (FP) PO PRN ×2 (05:18→11:36)
[2017-11-20] MEDS: BACITRACIN 0.9 GM PACKET TP SCH ×4 (10:48→22:04)
[2017-11-20] MEDS: ZINC OXIDE 20% TOPICAL OINTMENT 30 GM TUBE TP SCH ×4 (10:48→22:04)
[2017-11-20] MEDS: NICOTINE 7 MG/24 HOURS TOPICAL PATCH TD SCH (11:35)
[2017-11-20] MEDS: LIDOCAINE 5% TOPICAL PATCH TP SCH (11:36)
[2017-11-20] MEDS: PRENATAL VITAMINS W/ FOLIC ACID TABLET (FP) PO SCH (11:36)
[2017-11-20] MEDS: CEPHALEXIN MONOHYDRATE 500 MG CAPSULE (UD) PO SCH ×3 (11:36→22:04)
[2017-11-20] MEDS: MELATONIN 5 MG TABLETS PO PRN (21:51)
[2017-11-20] MEDS: THIAMINE HCL 100 MG TABLET (FP) PO SCH ×2 (21:51→22:04)
[2017-11-20] MEDS: LIDOCAINE PATCH REMOVAL MC SCH (21:52)
[2017-11-21] MEDS: BACLOFEN 10 MG TABLET (FP) PO PRN ×3 (05:15→22:24)
[2017-11-21] MEDS: IBUPROFEN 400 MG TABLET (FP) PO PRN ×3 (05:15→22:24)
[2017-11-21] MEDS ORDERED: PT OWN MED DRAWER 7, Y5N ONE (09:36)
--- NOTE | 2017-11-21 10:32 | PN ---
Psychiatric Progress Note Vital Signs: Vital Signs Period Temp Pulse Resp BP Sys/Varela Pulse Ox Last 24 Hr 65 18-18 147/95 Date of Session: 11/21/17 Chief Complaint:: DischargeNote HPI: Patient addressing Opioid Dependence comorbid with Nicotine Dependence ROS: Blindness both eyes due to retinal detachment Current Medications: Active Medications Generic Name Dose Route Start Last Admin Trade Name Freq PRN Reason Stop Dose Admin Acetaminophen 650 mg 11/10/17 14:26 11/19/17 23:43 Tylenol - PO 650 mg Q4H PRN Administration FEVER Al Hydroxide/Mg Hydroxide 30 ml 11/10/17 14:26 Mylanta Oral Suspension - PO Q6H PRN DYSPEPSIA Bacitracin 0.9 gm 11/19/17 14:00 11/20/17 22:04 Bacitracin - TP Not Given BID AUTUMN Baclofen 10 mg 11/12/17 16:21 11/21/17 05:15 Lioresal - PO 10 mg TID PRN Administration BACK PAIN Cephalexin HCl 500 mg 11/19/17 22:00 11/20/17 22:04 Keflex - PO 11/21/17 22:00 Not Given BID AUTUMN Eucalyptus/Menthol/Phenol/Sorbitol 1 each 11/10/17 14:26 Cepastat Lozenge - MM Q4H PRN SORE THROAT Guaifenesin 10 ml 11/10/17 14:26 Robitussin Dm - PO Q6H PRN COUGH Hydroxyzine Pamoate 50 mg 11/13/17 18:00 11/20/17 11:36 Vistaril - PO 50 mg Q4H PRN Administration FOR ITCHING Ibuprofen 400 mg 11/10/17 14:26 11/21/17 05:15 Motrin - PO 400 mg Q6H PRN Administration PAIN LEVEL 4-6 Lidocaine 1 patch 11/11/17 14:00 11/20/17 11:36 Lidoderm Patch - TP 1 patch DAILY AUTUMN Administration Loperamide HCl 4 mg 11/10/17 14:26 Imodium - PO Q6H PRN DIARRHEA Magnesium Citrate 300 ml 11/10/17 14:26 Citroma - PO Q48H PRN CONSTIPATION Magnesium Hydroxide 30 ml 11/10/17 14:26 Milk Of Magnesia - PO DAILY PRN CONSTIPATION Melatonin 5 mg 11/10/17 22:00 11/20/17 21:51 Melatonin PO 5 mg HS PRN Administration INSOMNIA Miscellaneous 1 each 11/11/17 22:00 11/20/17 21:52 Lidoderm Patch Removal MC Not Given DAILY@2200 AUTUMN Multi-Ingredient Ointment 1 applic 11/19/17 13:45 11/20/17 22:04 Zinc Oxide TP Not Given BID AUTUMN Nicotine 7 mg 11/10/17 14:45 11/20/17 11:35 Nicoderm Patch - TD 7 mg DAILY AUTUMN Administration Nicotine Polacrilex 2 mg 11/10/17 14:26 Nicorette Gum - BUC Q2H PRN NICOTINE REPLACEMENT RX Multivit/Folic Acid/Iron 1 tab 11/11/17 10:00 11/20/17 11:36 Vitamins (Sjr) - PO Not Given DAILY AUTUMN Pseudoephedrine/Triprolidine 1 combo 11/10/17 14:26 Actifed - PO TID PRN NASAL CONGESTION Thiamine HCl 100 mg 11/10/17 22:00 11/20/17 22:04 Vitamin B1 - PO Not Given HS AUTUMN Current Side Effect: No Lab tests ordered: No Lab tests reviewed: Yes Provider note:: Patient will complete this program on 11/22/17. He has partially met his treatment goals and will continue to address his issues in senior care residential treatment at [facility]. Told com writer that from his participation in this program, he has learned to identify his triggers and better ways to avoid them. He is stable for discharge on 11/22/17 Total face to face time:: 35 Mental Status Exam - Mental Status Exam Alert and Oriented to: Time, Place, Person Cognitive Function: Fair Patient Appearance: Disheveled Mood: Hopeful, Euthymic Affect: Appropriate Patient Behavior: Cooperative Speech Pattern: Clear Voice Loudness: Normal Thought Process: Intact, Goal Oriented Thought Disorder: Not Present Hallucinations: Denies Suicidal Ideation: Denies Homicidal Ideation: Denies Insight/Judgement: Fair Sleep: Fair Appetite: Good Muscle strength/Tone: Normal Gait/Station: Other (needs assistance since he is legaly blind) Psychiatric Treatment Plan - Problem List (1) Opioid dependence Current Visit: Yes (2) Nicotine dependence Current Visit: Yes Qualifiers: Nicotine product type: cigarettes Substance use status: uncomplicated Qualified Code(s): F17.210 - Nicotine dependence, cigarettes, uncomplicated (3) Blindness of both eyes Current Visit: Yes Initial treatment plan: Patient will be discharged tomorrow and referred to [facility] for senior care residential treatment
[2017-11-21] MEDS: LIDOCAINE 5% TOPICAL PATCH TP SCH (10:58)
[2017-11-21] MEDS: CEPHALEXIN MONOHYDRATE 500 MG CAPSULE (UD) PO SCH ×2 (10:58→22:23)
[2017-11-21] MEDS: BACITRACIN 0.9 GM PACKET TP SCH ×2 (10:58→22:22)
[2017-11-21] MEDS: PRENATAL VITAMINS W/ FOLIC ACID TABLET (FP) PO SCH (10:59)
[2017-11-21] MEDS: NICOTINE 7 MG/24 HOURS TOPICAL PATCH TD SCH (11:01)
[2017-11-21] MEDS: ZINC OXIDE 20% TOPICAL OINTMENT 30 GM TUBE TP SCH ×2 (11:02→22:26)
--- NOTE | 2017-11-21 13:13 | PN ---
[facility] Progress Note Note: Vital Signs Temperature 97.9 F 11/18/17 06:57 Pulse Rate 65 11/21/17 07:06 Respiratory Rate 18 11/21/17 07:06 Blood Pressure 147/95 11/21/17 07:06 O2 Sat by Pulse Oximetry (%) Patient medically stable. Patient will complete this program on 11/22/17. Patient to follow up with halfway residential treatment at [facility]. Follow up with primary care provider in a week.
--- NOTE | 2017-11-21 14:07 | PN ---
S Progress Note Note: Vital Signs Temperature 97.9 F 11/18/17 06:57 Pulse Rate 65 11/21/17 07:06 Respiratory Rate 18 11/21/17 07:06 Blood Pressure 147/95 11/21/17 07:06 O2 Sat by Pulse Oximetry (%) Patient requested link to [facility]. Patient to follow up with counselor.
[2017-11-21] MEDS: THIAMINE HCL 100 MG TABLET (FP) PO SCH (22:25)
[2017-11-21] MEDS: LIDOCAINE PATCH REMOVAL MC SCH (22:26)
[2017-11-21] MEDS: MELATONIN 5 MG TABLETS PO PRN (22:26)
[2017-11-22] MEDS: IBUPROFEN 400 MG TABLET (FP) PO PRN (06:08)
[2017-11-22] MEDS: BACLOFEN 10 MG TABLET (FP) PO PRN (06:08)
[2017-11-22 07:06] VITALS: BP 154/91; PULSE 73
[2017-11-22] MEDS: BACITRACIN 0.9 GM PACKET TP SCH (11:04)
[2017-11-22] MEDS: LIDOCAINE 5% TOPICAL PATCH TP SCH (11:04)
[2017-11-22] MEDS: NICOTINE 7 MG/24 HOURS TOPICAL PATCH TD SCH (11:04)
[2017-11-22] MEDS: PRENATAL VITAMINS W/ FOLIC ACID TABLET (FP) PO SCH (11:04)
[2017-11-22] MEDS: ZINC OXIDE 20% TOPICAL OINTMENT 30 GM TUBE TP SCH (11:05)
== END 2017-11-22 12:35 | disposition home or self-care (01) | DRG 895 ==
LOC: YASAS 09:22 → Y6N 12:51 → UNDODISIN 11-15 11:50 → Y5N 11-15 14:07
PROVIDERS: ATTEND Psychiatry & Neurology Psychiatry
PROC: HZ2ZZZZ Detoxification Services for Substance Abuse Treatment (ICD-10-PCS; 2017-11-10)
PROC: HZ42ZZZ Group Counseling for Substance Abuse Treatment, Cognitive-Behavioral (ICD-10-PCS; principal; 2017-11-18)
DX: F11.20 Opioid dependence, uncomplicated (principal); L97.919 Non-pressure chronic ulcer of unspecified part of right lower leg with unspecified severity; L97.929 Non-pressure chronic ulcer of unspecified part of left lower leg with unspecified severity; F17.210 Nicotine dependence, cigarettes, uncomplicated; F32.9 Major depressive disorder, single episode, unspecified; I73.9 Peripheral vascular disease, unspecified; H54.3 Unqualified visual loss, both eyes; R26.89 Other abnormalities of gait and mobility; Z99.89 Dependence on other enabling machines and devices; Z59.0 Homelessness
CPT/HCPCS: 36415; 80053; 81003; 81015; 85027; 86593; 93005; 93010; J0475